=== PATIENT | male | born 1955 | race Caucasian/White ===

== ENCOUNTER 2018-01-09 03:42 | Emergency (ER) | payer OTHER ==
[2018-01-09] MEDS ORDERED: MULTIVITAMINS 10 ML VIAL (INJ) IV ONE (04:14)
[2018-01-09] MEDS ORDERED: NA CHLORIDE 0.9% 1,000 ML ONE (04:14)
[2018-01-09] MEDS ORDERED: THIAMINE 200 MG/2 ML INJ ONE (04:14)
[2018-01-09] MEDS ORDERED: FOLIC ACID 5 MG/ML VIAL ONE (04:15)
[2018-01-09 04:34] LABS: Absolute Lymphocytes (CBC) 3.7 K/uL (0.7-4.9); Absolute Monocytes 0.9 K/uL (0.1-1.3); Absolute Neutrophil 4.4 K/uL (1.8-8.0); Basophils % 0.8 % (0-1.3); Eosinophils % 4.1 % (0-4.4); Hematocrit 44.6 % (39.6-49.0); Lymphocytes % 39.5 % (15.3-44.8); MCH 35.3 pg (27.0-35.0); MCV 101.1 fL (80-100); MPV 7.5 fL (7.6-11.3); Monocytes % 9.3 % (3.3-12.3); Protime INR 0.95; RBC Red Blood Cell Count 4.41 M/uL (4.33-5.43)
[2018-01-09 05:05] LABS: ALT/SGPT 33 U/L (12-78); AST/SGOT 23 U/L (15-37); Albumin 3.9 g/dL (3.4-5.0); Alkaline Phosphatase 69 U/L (45-117); BUN Blood Urea Nitrogen 8 mg/dL (7-18); Bicarbonate 24 mmol/L (21-32); Bilirubin Direct 0.1 mg/dL (0-0.2); Bilirubin Total 0.4 mg/dL (0.2-1.0); Glucose Level 99 mg/dL (74-106); Potassium 3.7 mmol/L (3.5-5.1); Protein, Total 8.2 g/dL (6.4-8.2); Sodium Level 135 mmol/L (136-145)
[2018-01-09 05:29] LABS: Barbiturates NEGATIVE (NEGATIVE); Benzodiazepines NEGATIVE (NEGATIVE); Cocaine NEGATIVE (NEGATIVE); METHAMPHETAM NEGATIVE (NEGATIVE); Methadone NEGATIVE (NEGATIVE); Opiates NEGATIVE (NEGATIVE); Phencyclidine NEGATIVE (NEGATIVE); THC Cannibis NEGATIVE (NEGATIVE)
[2018-01-09 06:07] LABS: Urine Blood NEGATIVE (NEG); Urine Glucose NEGATIVE (NEG); Urine Protein NEGATIVE (NEG); Urine Specific Gravity 1.005 (1.005-1.030); Urine pH 5.5 (5.0-7.0)
--- NOTE | 2018-01-09 07:49 | EKG ---
Test Date: 2018-01-09 Test Time: 03:52:38 [employer] Developer: DOROTEO MEASUREMENT RESULTS: Intervals: Rate: 77 [place]: 194 QRSD: 78 QT: 370 QTc: 418 [place]: P: -2 [place]: 194 QRS: 6 T: 47 INTERPRETIVE STATEMENTS: Normal sinus rhythm Normal ECG No previous ECG available for comparison Electronically Signed On 01-09-18 07:48:38 CDT by Isaac Reynolds
--- NOTE | 2018-01-09 13:33 | ER ---
Nurse's Notes [facility] Name: Cleveland Isaacs Age: 62 yrs Sex: Male : 1955 Arrival Date: 01/09/2018 Time: 03:43 Bed 7 Private MD: Diagnosis: Alcohol abuse with intoxication Presentation: 01/09 03:52 Presenting complaint: [place] police records clerk states they were notified by the [facility] hotline that the pt had called them and reported he wanted to get his gun out of his gun safe and blow his brains out so they went to check on the pt and he was intoxicated reporting that he had drunk 8 16 oz cans of beer and wanted to kill himself. Transition of care: patient was not received from another setting of care. Onset of symptoms was January 09, 2018. Risk Assessment: Do you want to hurt yourself or someone else? Patient reports no desire to harm self or others. Initial Sepsis Screen: Does the patient meet any 2 criteria? No. Patient's initial sepsis screen is negative. Does the patient have a suspected source of infection? No. Patient's initial sepsis screen is negative. Care prior to arrival: None. 03:52 Method Of Arrival: Law Enforcement: [place] GÓMEZ 03:52 Acuity: GEMA 2 bb Historical: - Allergies: 03:57 Codeine; bb - Home Meds: 03:57 Unable to obtain [Active]; bb - PMHx: 03:57 PTSD; bb - PSHx: 03:57 R knee replacement; bb - Immunization history:: Adult Immunizations unknown. - Social history:: Smoking status: Patient uses tobacco products, smokes 1.5 packs per day, Patient uses alcohol, patient/guardian reports recent binge of alcohol consumption. Patient/guardian denies using street drugs. - Ebola Screening: : No symptoms or risks identified at this time. Screenin:08 Abuse screen: Denies threats or abuse. Nutritional screening: No deficits noted. jd3 Tuberculosis screening: No symptoms or risk factors identified. Fall Risk IV access (20 points). Ambulatory Aid- None/Bed Rest/Nurse Assist (0 pts). Gait- Normal/Bed Rest/Wheelchair (0 pts) Mental Status- Oriented to own ability (0 pts). Total Oakley Fall Scale indicates No Risk (0-24 pts). Assessment: 04:02 General: Appears in no apparent distress. uncomfortable, Behavior is cooperative, jd3 appropriate for age, anxious, Smells of alcohol. Pain: Denies pain. Neuro: Level of Consciousness is awake, alert, obeys commands, Oriented to person, place, time, situation. Cardiovascular: Denies chest pain, Capillary refill < 3 seconds Patient's skin is warm and dry. Respiratory: Airway is patent Respiratory effort is even, unlabored, Respiratory pattern is regular, symmetrical, Denies cough, shortness of breath. GI: No signs and/or symptoms were reported involving the gastrointestinal system. : No signs and/or symptoms were reported regarding the genitourinary system. EENT: No signs and/or symptoms were reported regarding the EENT system. Derm: No signs and/or symptoms reported regarding the dermatologic system. Musculoskeletal: Circulation, motion, and sensation intact. Range of motion: intact in all extremities. 05:00 Reassessment: Patient appears in no apparent distress at this time. Patient and/or jd3 family updated on plan of care and expected duration. Pain level reassessed. Patient is alert, oriented x 3, equal unlabored respirations, skin warm/dry/pink. Patient denies pain at this time. 06:00 Reassessment: Patient appears in no apparent distress at this time. Patient and/or jd3 family updated on plan of care and expected duration. Pain level reassessed. Patient is alert, oriented x 3, equal unlabored respirations, skin warm/dry/pink. Patient denies pain at this time. 07:00 Reassessment: Patient appears in no apparent distress at this time. Patient and/or ph family updated on plan of care and expected duration. Pain level reassessed. Patient is alert, oriented x 3, equal unlabored respirations, skin warm/dry/pink. Pt denies SI at this time, states, " I just had a little too much to drink and have had a lot going on, I don't want to kill myself." Awaiting repeat ETOH before pt can be assessed by [facility]. 08:00 Reassessment: Patient appears in no apparent distress at this time. Patient and/or ph family updated on plan of care and expected duration. Pain level reassessed. Pt asleep w/ equal unlabored respirations, awaiting evaluation by [facility]. 08:30 Reassessment: Patient appears in no apparent distress at this time. Patient is alert, ph oriented x 3, equal unlabored respirations, skin warm/dry/pink. Pt awake and requesting to use urinal, states, " When am I getting out of here? This is getting ridiculous." It was explained to pt that his ETOH needs to be below 100 before [facility] can come to evaluate him. Repeat ETOH level drawn and sent to lab, awaiting results. 09:30 Reassessment: Patient appears in no apparent distress at this time. Patient and/or ph family updated on plan of care and expected duration. Pain level reassessed. Pt asleep w/ even and equal repsirations. 10:30 Reassessment: Patient appears in no apparent distress at this time. No changes from ph previously documented assessment. Patient and/or family updated on plan of care and expected duration. Pain level reassessed. 11:30 Reassessment: Patient appears in no apparent distress at this time. No changes from ph previously documented assessment. Patient and/or family updated on plan of care and expected duration. Pain level reassessed. 13:00 Reassessment: Patient appears in no apparent distress at this time. Patient and/or ph family updated on plan of care and expected duration. Pain level reassessed. Patient is alert, oriented x 3, equal unlabored respirations, skin warm/dry/pink. [facility] client representative at bedside to speak w/ pt. Psych: 04:02 Subjective: Patient's mood is irritable, Having thoughts of suicide. Plan for suicide bb is "blowing my brains out" with his gun. Objective: Patient is irritable, Speech is loud. Interventions:. Suicide Risk Assessment: Sad Person Scale: Sex of patient: Male: Score 1 point. Age of patient: Score 0 point if patient falls outside of specified age parameters. Depression: Score 1 point if signs of depression are present. Substance Abuse: Score 1 point if patient abuses alcohol or drugs. Organized Plan: Score 1 point if patient had a plan in place. Chronic Sickness: Score 1 point if patient has illness, chronic, debilitating, or severe. TOTAL POINTS: If total points are 5-6, proposed clinical action is to strongly consider hospitalization, depending upon confidence in the follow-up arrangement. Implement suicide precautions. Patient uses 8 16 oz beers. 04:03 Subjective: Patient's mood is sad, Delusions are denied, Hallucinations are denied jd3 Having thoughts of suicide. Objective: Patient is cooperative, irritable, Speech is normal, Affect is appropriate. Interventions: Removed personal items and placed in bag. Patient placed in hospital gown. Searched person for dangerous items. Belonging list filled out. Suicide Risk Assessment: Sad Person Scale: Sex of patient: Male: Score 1 point. Age of patient: Score 0 point if patient falls outside of specified age parameters. Depression: Score 1 point if signs of depression are present. Previous Attempt: Score 0 point if patient has not previously attempted suicide. Substance Abuse: Score 1 point if patient abuses alcohol or drugs. Rational Thinking: Score 0 point if patient has rational thinking. Social Support: Score 0 if social support is present/available. Organized Plan: Score 1 point if patient had a plan in place. Relationship: Score 0 point if patient has a spouse or domestic partner. Chronic Sickness: Score 0 point if patient does not have a chronic illness, debilitating, or severe disorder. TOTAL POINTS: If total points are 3-4, proposed clinical action is close follow-up/consider hospitalization. Safety Checks: Personal items have been removed. Door is open. No visitors are present at this time. Patient uses. Vital Signs: 03:57 BP 159 / 84; Pulse 76; Resp 18 S; Temp 98(O); Pulse Ox 95% on R/A; Weight 107.95 kg bb (R); Height 6 ft. 0 in. (182.88 cm) (R); Pain 0/10; 07:32 BP 144 / 80; Pulse 70; Resp 16; Pulse Ox 96% on R/A; Pain 0/10; em1 12:05 BP 137 / 62; Pulse 70; Resp 18; Temp 99.2; Pulse Ox 94% ; ag2 03:57 Body Mass Index 32.28 (107.95 kg, 182.88 cm) bb ED Course: 03:43 Patient arrived in ED. ds1 03:56 Triage completed. bb 03:57 Kd Ohara MD is Attending Physician. pkl 04:02 Guanako Ochoa RN is Primary Nurse. jd3 04:08 Patient has correct armband on for positive identification. Bed in low position. Call jd3 light in reach. Side rails up X 1. 04:15 Safety Checks: Personal items have been removed. The door is open or patient has been jd3 placed in a hallway bed/chair. There are no family/friend visitors at this time Sitter present at this time. 04:19 Note: Pt refused portable 1 view Chest Xray.. sw 04:30 Safety Checks: Personal items have been removed. The door is open or patient has been jd3 placed in a hallway bed/chair. There are no family/friend visitors at this time Sitter present at this time. 04:40 Acetaminophen Sent. ds4 04:40 Basic Metabolic Panel Sent. ds4 04:40 CBC with Diff Sent. ds4 04:41 Hepatic Function Sent. ds4 04:42 PT-INR Sent. ds4 04:45 Safety Checks: Personal items have been removed. The door is open or patient has been jd3 placed in a hallway bed/chair. There are no family/friend visitors at this time Sitter present at this time. 04:45 Safety checks: Items removed: yes. Door open/sign placed on door: yes. Family/friend ds4 present: no. Sitter present: Yes. 04:45 Ptt, Activated Sent. ds4 04:45 Salicylate Sent. ds4 05:00 Safety checks: Items removed: yes. Door open/sign placed on door: yes. Family/friend ds4 present: no. Sitter present: Yes. 05:01 Urine Drug Screen Sent. ds4 05:15 Safety checks: Items removed: yes. Door open/sign placed on door: yes. Family/friend ds4 present: no. Sitter present: Yes. 05:30 Safety checks: Items removed: yes. Door open/sign placed on door: yes. Family/friend ds4 present: no. Sitter present: Yes. 05:45 Safety checks: Items removed: yes. Door open/sign placed on door: yes. Family/friend ds4 present: no. Sitter present: Yes. 06:00 Safety checks: Items removed: yes. Door open/sign placed on door: yes. Family/friend ds4 present: no. Sitter present: Yes. 06:15 Safety checks: Items removed: yes. Door open/sign placed on door: yes. Family/friend ds4 present: no. Sitter present: Yes. 06:30 Safety checks: Items removed: yes. Door open/sign placed on door: yes. Family/friend ds4 present: no. Sitter present: Yes. 06:45 Safety checks: Items removed: yes. Door open/sign placed on door: yes. Family/friend ds4 present: no. Sitter present: Yes. 07:00 Safety checks: Items removed: yes. Door open/sign placed on door: yes. Family/friend ds4 present: no. Sitter present: Yes. 07:11 Attending Physician role handed off by Kd Ohara MD rn 07:11 Jerzy Oneill MD is Attending Physician. rn 07:13 Safety checks: Items removed: yes. Door open/sign placed on door: yes. Family/friend em1 present: no. Sitter present: Yes. 07:30 Safety checks: Items removed: yes. Door open/sign placed on door: yes. Family/friend em1 present: no. Sitter present: Yes. 07:45 Safety checks: Items removed: yes. Door open/sign placed on door: yes. Family/friend em1 present: no. Sitter present: Yes. 08:00 Safety checks: Items removed: yes. Door open/sign placed on door: yes. Family/friend em1 present: no. Sitter present: Yes. 08:00 Arm band placed on. ph 08:17 Safety checks: Items removed: yes. Door open/sign placed on door: yes. Family/friend em1 present: no. Sitter present: Yes. 08:30 Safety checks: Items removed: yes. Door open/sign placed on door: yes. Family/friend eb present: no. Sitter present: Yes. 08:45 Safety checks: Items removed: yes. Door open/sign placed on door: yes. Family/friend eb present: no. Sitter present: Yes. 09:00 Safety checks: Items removed: yes. Door open/sign placed on door: yes. Family/friend em1 present: no. Sitter present: Yes. 09:15 Safety checks: Items removed: yes. Door open/sign placed on door: yes. Family/friend em1 present: no. Sitter present: Yes. 09:26 called the [facility] at [phone] spoke with Marshall to please page a eb screener to come evaluate the patient. 09:49 Safety checks: Items removed: Door open/sign placed on door: yes. Family/friend em1 present: yes. Sitter present: Yes. 10:13 No apparent distress. Appears to be sleeping. Safety Checks: Personal items have been ag2 removed. The door is open or patient has been placed in a hallway bed/chair. There are no family/friend visitors at this time Sitter present at this time. 10:23 No apparent distress. pt sitting up at side of bed eating breakfast. Safety Checks: ag2 Personal items have been removed. The door is open or patient has been placed in a hallway bed/chair. There are no family/friend visitors at this time Sitter present at this time. 10:27 Anitha from the [facility] called said she received the consult and would be eb here around 1230. 10:56 No apparent distress. Appears to be sleeping. Safety Checks: Personal items have been ag2 removed. The door is open or patient has been placed in a hallway bed/chair. There are no family/friend visitors at this time Sitter present at this time. 11:06 No apparent distress. Appears to be sleeping. Safety Checks: Personal items have been ag2 removed. The door is open or patient has been placed in a hallway bed/chair. There are no family/friend visitors at this time Sitter present at this time. 11:23 No apparent distress. Appears to be sleeping. Safety Checks: Personal items have been ag2 removed. The door is open or patient has been placed in a hallway bed/chair. There are no family/friend visitors at this time Sitter present at this time. 11:44 No apparent distress. Appears to be sleeping. Safety Checks: Personal items have been ag2 removed. The door is open or patient has been placed in a hallway bed/chair. There are no family/friend visitors at this time. 12:04 No apparent distress. Appears to be sleeping. Safety Checks: Personal items have been ag2 removed. The door is open or patient has been placed in a hallway bed/chair. There are no family/friend visitors at this time Sitter present at this time. 12:23 No apparent distress. Appears to be sleeping. Safety Checks: Personal items have been ag2 removed. The door is open or patient has been placed in a hallway bed/chair. There are no family/friend visitors at this time Sitter present at this time. 12:35 No apparent distress. Appears to be sleeping. Safety Checks: Personal items have been ag2 removed. The door is open or patient has been placed in a hallway bed/chair. There are no family/friend visitors at this time Sitter present at this time. 12:43 Appears agitated. Pt sitting up in bed eating lunch. pt stated " I cannot stand this ag2 much longer, when are they coming, i want to go home". Safety Checks: Personal items have been removed. The door is open or patient has been placed in a hallway bed/chair. There are no family/friend visitors at this time Sitter present at this time. 12:58 Anitha from the [facility] here to screen the patient. 12:59 No apparent distress. [facility] client representative visiting with pt at this time. Safety ag2 Checks: Personal items have been removed. The door is open or patient has been placed in a hallway bed/chair. There are no family/friend visitors at this time Sitter present at this time. 13:16 No apparent distress. Resting quietly. Safety Checks: Personal items have been removed. ag2 The door is open or patient has been placed in a hallway bed/chair. There are no family/friend visitors at this time Sitter present at this time. 13:26 No apparent distress. Resting quietly. Safety Checks: Personal items have been removed. ag2 The door is open or patient has been placed in a hallway bed/chair. There are no family/friend visitors at this time Sitter present at this time. 13:35 No apparent distress. Resting quietly. Safety Checks: Personal items have been removed. ag2 The door is open or patient has been placed in a hallway bed/chair. There are no family/friend visitors at this time Sitter present at this time. 13:53 No apparent distress. Resting quietly. Safety Checks: Personal items have been removed. ag2 The door is open or patient has been placed in a hallway bed/chair. There are no family/friend visitors at this time Sitter present at this time. 13:56 No apparent distress. pt discharged. ag2 14:00 No provider procedures requiring assistance completed. IV discontinued, intact, ph bleeding controlled, No redness/swelling at site. Pressure dressing applied. Administered Medications: 04:34 Not Given (Patient Refused): Banana Bag - (NS 0.9% 1000 ml, foLIC Acid 1 mg, Thiamine jd3 100 mg, Multivitamin 1 amp) IV at calculated rate once Outcome: 13:32 Discharge ordered by . rn 14:00 Discharged to home ambulatory. ph 14:00 Condition: improved 14:00 Discharge instructions given to patient, Instructed on discharge instructions, follow up and referral plans. Demonstrated understanding of instructions, follow-up care. 14:01 Patient left the ED. ph Signatures: Kd Ohara MD MD pkl Sanford, Demi ds1 Ana Rosa Looney RN RN bb Jerzy Oneill MD MD rn Martinez, Eric em1 Herman Ghosh ds4 Margo Huang RN RN Bossman, Guanako Platt RN RN Anita Marquez ag2 Gilda Nicole Corrections: (The following items were deleted from the chart) 04:09 03:52 Risk Assessment: Do you want to hurt yourself or someone else? Patient reports no jd3 desire to harm self or others. bb 04:32 04:03 Safety Checks: pt refused to relinquish personal items, awaiting mental health jd3 deputy for JOSE. doctor and charge nurse notified. Door is open. No visitors are present at this time. jd3 04:32 04:03 Interventions: pt refused to relinquish personal items, awaiting mental health jd3 deputy for JOSE. doctor and charge nurse notified. jd3 07:01 06:56 Safety checks: Items removed: yes. Door open/sign placed on door: yes. ds4 Family/friend present: no. Sitter present: Yes. ds4 10:10 04:00 Arm band placed on Patient placed in an exam room, on a stretcher, on pulse ag2 oximetry, bb 14:58 07:00 Reassessment: Patient appears in no apparent distress at this time. Patient ph and/or family updated on plan of care and expected duration. Pain level reassessed. Patient is alert, oriented x 3, equal unlabored respirations, skin warm/dry/pink. ph 14:58 08:30 Reassessment: Patient appears in no apparent distress at this time. Patient is ph alert, oriented x 3, equal unlabored respirations, skin warm/dry/pink. Pt awake and requesting to use urinal, states, " When am I getting out of here? This is getting ridiculous." It was explained to pt that his ETOH needs to be below 100 before [facility] can come to evaluate him. Repeat ETOH level drawn and sent to lab, awaiting results ph
--- NOTE | 2018-01-09 13:33 | EDPHYS ---
Physician Documentation [facility] Name: Cleveland Isaacs Age: 62 yrs Sex: Male : 1955 Arrival Date: 01/09/2018 Time: 03:43 Bed 7 Private MD: ED Physician Jerzy Oneill HPI: 01/09 04:05 This 62 yrs old Male presents to ER via [employer] with complaints of Suicidal pkl Ideation. 04:05 The patient presents to the emergency department with depression. Onset: The pkl symptoms/episode began/occurred today. Patient said he was upset because his is in the hospital and he was having problems with the insurance. He started drinking a lot and became intoxicated and called [place] hot line an reported he wanted to get his gun and blow his brains.. Historical: - Allergies: 03:57 Codeine; bb - Home Meds: 03:57 Unable to obtain [Active]; bb - PMHx: 03:57 PTSD; bb - PSHx: 03:57 R knee replacement; bb - Immunization history:: Adult Immunizations unknown. - Social history:: Smoking status: Patient uses tobacco products, smokes 1.5 packs per day, Patient uses alcohol, patient/guardian reports recent binge of alcohol consumption. Patient/guardian denies using street drugs. - Ebola Screening: : No symptoms or risks identified at this time. ROS: 04:05 Eyes: Negative for injury, pain, redness, and discharge, ENT: Negative for injury, pkl pain, and discharge, Neck: Negative for injury, pain, and swelling, Cardiovascular: Negative for chest pain, palpitations, and edema, Respiratory: Negative for shortness of breath, cough, wheezing, and pleuritic chest pain, Abdomen/GI: Negative for abdominal pain, nausea, vomiting, diarrhea, and constipation, Back: Negative for injury and pain, : Negative for injury, bleeding, discharge, and swelling, MS/Extremity: Negative for injury and deformity, Skin: Negative for injury, rash, and discoloration, Neuro: Negative for headache, weakness, numbness, tingling, and seizure. 04:05 Psych: Positive for depression, suicidal ideation. Exam: 04:05 Head/Face: Normocephalic, atraumatic. Eyes: Pupils equal round and reactive to light, pkl extra-ocular motions intact. Lids and lashes normal. Conjunctiva and sclera are non-icteric and not injected. Cornea within normal limits. Periorbital areas with no swelling, redness, or edema. ENT: Nares patent. No nasal discharge, no septal abnormalities noted. Tympanic membranes are normal and external auditory canals are clear. Oropharynx with no redness, swelling, or masses, exudates, or evidence of obstruction, uvula midline. Mucous membranes moist. Neck: Trachea midline, no thyromegaly or masses palpated, and no cervical lymphadenopathy. Supple, full range of motion without nuchal rigidity, or vertebral point tenderness. No Meningismus. Chest/axilla: Normal chest wall appearance and motion. Nontender with no deformity. No lesions are appreciated. Cardiovascular: Regular rate and rhythm with a normal S1 and S2. No gallops, murmurs, or rubs. Normal PMI, no JVD. No pulse deficits. Respiratory: Lungs have equal breath sounds bilaterally, clear to auscultation and percussion. No rales, rhonchi or wheezes noted. No increased work of breathing, no retractions or nasal flaring. Abdomen/GI: Soft, non-tender, with normal bowel sounds. No distension or tympany. No guarding or rebound. No evidence of tenderness throughout. Back: No spinal tenderness. No costovertebral tenderness. Full range of motion. Skin: Warm, dry with normal turgor. Normal color with no rashes, no lesions, and no evidence of cellulitis. MS/ Extremity: Pulses equal, no cyanosis. Neurovascular intact. Full, normal range of motion. Neuro: Awake and alert, GCS 15, oriented to person, place, time, and situation. Cranial nerves II-XII grossly intact. Motor strength 5/5 in all extremities. Sensory grossly intact. Cerebellar exam normal. Normal gait. 04:05 Psych: Behavior/mood is cooperative, Affect is calm, Patient having thoughts of suicide. Plan for suicide is get his gun and blow his brains Judgement / Insight is impaired. Vital Signs: 03:57 BP 159 / 84; Pulse 76; Resp 18 S; Temp 98(O); Pulse Ox 95% on R/A; Weight 107.95 kg bb (R); Height 6 ft. 0 in. (182.88 cm) (R); Pain 0/10; 07:32 BP 144 / 80; Pulse 70; Resp 16; Pulse Ox 96% on R/A; Pain 0/10; em1 12:05 BP 137 / 62; Pulse 70; Resp 18; Temp 99.2; Pulse Ox 94% ; ag2 03:57 Body Mass Index 32.28 (107.95 kg, 182.88 cm) bb MDM: 03:57 Patient medically screened. pkl 13:29 Differential diagnosis: alcohol intoxication. Data reviewed: vital signs, nurses notes, groover and turner test result(s), EKG. Counseling: I had a detailed discussion with the patient and/or guardian regarding: the historical points, exam findings, and any diagnostic results supporting the discharge/admit diagnosis, lab results, the need for outpatient follow up, to return to the emergency department if symptoms worsen or persist or if there are any questions or concerns that arise at home. Response to treatment: the patient's symptoms have markedly improved after treatment. Special discussion: I discussed with the patient/guardian in detail that at this point there is no indication for admission to the hospital. It is understood, however, that if the symptoms persist or worsen the patient needs to return immediately for re-evaluation. ED course: Pt spoke with Dr campos this morning, denied suicidal ideation to him, plan was to watch him, let him sober, and reeval. Denied suicidal ideations entire time he has been here, called out [facility] for evaluation, they state he denies suicidal ideation or plan to them, no previous attempt or history, under stress, they decided he can safely go home, has a safety plan. . 01/09 03:59 Order name: Acetaminophen; Complete Time: :01/09 03:59 Order name: Basic Metabolic Panel; Complete Time: :01/09 03:59 Order name: CBC with Diff; Complete Time: 04:59 01/09 03:59 Order name: ETOH Level; Complete Time: 04:01/09 03:59 Order name: Hepatic Function; Complete Time: :01/09 03:59 Order name: PT-INR; Complete Time: 01/09 03:59 Order name: Ptt, Activated; Complete Time: 04:01/09 03:59 Order name: Salicylate; Complete Time: 0401/09 03:59 Order name: Urine Drug Screen; Complete Time: :11 bb 01/09 05:01 Order name: Urine Dipstick--Ancillary (enter results); Complete Time: 07:11 ds4 01/09 08:33 Order name: ETOH Level; Complete Time: 12:01 la1 01/09 10:59 Order name: ETOH Level; Complete Time: 12:01 la1 01/09 03:59 Order name: EKG; Complete Time: 04:00 bb 01/09 03:59 Order name: EKG - Nurse/Tech; Complete Time: 03:59 bb 01/09 03:59 Order name: IV Saline Lock; Complete Time: 03:59 bb 01/09 03:59 Order name: Labs collected and sent; Complete Time: 03:59 bb 01/09 03:59 Order name: Urine Dipstick-Ancillary (obtain specimen); Complete Time: 05:01 bb 01/09 09:32 Order name: Diet Finger Food; Complete Time: 09:32 eb 01/09 10:19 Order name: Diet Regular; Complete Time: 10:19 la1 Administered Medications: 04:34 Not Given (Patient Refused): Banana Bag - (NS 0.9% 1000 ml, foLIC Acid 1 mg, Thiamine jd3 100 mg, Multivitamin 1 amp) IV at calculated rate once Disposition: 01/09/18 13:32 Discharged to Home. Impression: Alcohol abuse with intoxication. - Condition is Stable. - Discharge Instructions: Alcohol Intoxication. - Medication Reconciliation Form, Thank You Letter, Antibiotic Education, Prescription Opioid Use form. - Follow up: Private Physician; When: As needed; Reason: Recheck today's complaints, Re-evaluation by your physician. - Problem is new. - Symptoms have improved. Signatures: Dispatcher [employer] EDAK Kd Campos MD MD pkl Ballard, Brenda RN RN Jerzy Coleman ph D, MD MD rn Hall, Patricia, RN RNavies, Jonathon RN jd3 Corrections: (The following items were deleted from the chart) 06:36 04:04 Chest Single View+RAD.RAD.BRZ ordered. EDAK EDMS 14:01 13:32 01/09/2018 13:32 Discharged to Home. Impression: Alcohol abuse with intoxication. ph Condition is Stable. Forms are Medication Reconciliation Form, Thank You Letter, Antibiotic Education, Prescription Opioid Use. Follow up: Private Physician; When: As needed; Reason: Recheck today's complaints, Re-evaluation by your physician. Problem is new. Symptoms have improved. rn
== END 2018-01-09 14:01 | disposition home or self-care (01) ==
LOC: ER 03:42
DX: F10.129 Alcohol abuse with intoxication, unspecified (principal); Z88.6 Allergy status to analgesic agent
CPT/HCPCS: 36415; 80048; 80076; 80307; 80320; 80329; 81003; 85025; 85610; 85730; 93005; 99284; J3411; J7030

== ENCOUNTER 2018-05-13 10:59 | Observation (INO) | payer OTHER ==
--- NOTE | 2018-05-13 11:43 | RAD REPORT ---
EXAM DESCRIPTION: CT - Head Brain Wo Cont - 05/13/2018 11:37 am CLINICAL HISTORY: DIZZINESS Headache, dizziness, drowsiness. COMPARISON: No comparisons TECHNIQUE: All CT scans are performed using dose optimization technique as appropriate and may inclu de automated exposure control or mA/KV adjustment according to patient size. FINDINGS: No intracranial hemorrhage, hydrocephalus or extra-axial fluid collection.No areas of brai n edema or evidence of midline shift. Mild fluid is seen in the ethmoid air cells and both maxillary antra. The calvarium is intact. IMPRESSION: No acute intracranial abnormality. Mild paranasal sinus fluid.
--- NOTE | 2018-05-13 12:00 | RAD REPORT ---
EXAM DESCRIPTION: RAD - Chest Single View - 05/13/2018 11:55 am CLINICAL HISTORY: dizziness Chest pain. COMPARISON: No comparisons FINDINGS: Portable technique limits examination quality. Interstitial lung markings are mildly prominent. No focal infiltrate is seen. The heart is normal in size. No displaced fractures.
[2018-05-13 12:20] LABS: Absolute Lymphocytes (CBC) 2.3 K/uL (0.7-4.9); Absolute Monocytes 0.5 K/uL (0.1-1.3); Absolute Neutrophil 5.8 K/uL (1.8-8.0); Basophils % 1.1 % (0-1.3); Eosinophils % 3.1 % (0-4.4); Hematocrit 41.3 % (39.6-49.0); Lymphocytes % 25.6 % (15.3-44.8); MPV 7.7 fL (7.6-11.3); Monocytes % 5.8 % (3.3-12.3); RBC Red Blood Cell Count 4.25 M/uL (4.33-5.43)
[2018-05-13 12:21] LABS: Protime INR 1.12
[2018-05-13 12:39] LABS: ALT/SGPT 19 U/L (12-78); AST/SGOT 14 U/L (15-37); Albumin 3.4 g/dL (3.4-5.0); Alkaline Phosphatase 57 U/L (45-117); BUN Blood Urea Nitrogen 12 mg/dL (7-18); Bicarbonate 27 mmol/L (21-32); Bilirubin Direct 0.1 mg/dL (0-0.2); Bilirubin Total 0.5 mg/dL (0.2-1.0); Glucose Level 88 mg/dL (74-106); Magnesium 2.3 mg/dL (1.8-2.4); NT PRO-BNP 246 pg/mL (<125); Protein, Total 7.1 g/dL (6.4-8.2); Sodium Level 141 mmol/L (136-145); Troponin (Emerg Dept Use Only) < 0.02 ng/mL (0.0-0.045)
--- NOTE | 2018-05-13 13:33 | ER ---
Nurse's Notes [facility] Name: Cleveland Isaacs Age: 62 yrs Sex: Male : 1955 Arrival Date: 05/13/2018 Time: 11:05 Bed 6 Private MD: Diagnosis: Dizziness;Bradycardia, unspecified Presentation: 05/13 11:05 Presenting complaint: Patient states: When he was driving to work this morning he aj1 started to feel dizzy and like his vision was foggy, when he got to work he sat in the parking lot for a minute and ended up falling asleep, which is unusual for him. He told his boss so they sent him home [facility], when he was at the clinic they did orthostatic vital signs and his blood pressure dropped when he was standing. Patient states that he was also recently started on Losartan 50 mg PO. Transition of care: patient was not received from another setting of care. Onset of symptoms was May 13, 2018. Risk Assessment: Do you want to hurt yourself or someone else? Patient reports no desire to harm self or others. Initial Sepsis Screen: Does the patient meet any 2 criteria? No. Patient's initial sepsis screen is negative. Does the patient have a suspected source of infection? No. Patient's initial sepsis screen is negative. Care prior to arrival: None. 11:05 Method Of Arrival: EMS: [facility] aj1 11:05 Acuity: GEMA 3 aj1 Triage Assessment: 11:13 General: Appears in no apparent distress. comfortable, Behavior is calm, cooperative, aj1 appropriate for age. Pain: Denies pain. Historical: - Allergies: 11:13 Codeine; aj1 - Home Meds: 11:13 bupropion HCl 150 mg Oral TbER 1 tab once daily [Active]; cyanocobalamin (vitamin B-12) aj1 1,000 mcg oral tab daily [Active]; gabapentin 100 mg oral cap 2 caps 3 times per day [Active]; losartan 50 mg oral tab 1 tab once daily [Active]; prazosin 1 mg Oral cap 1 cap at bedtime [Active]; sertraline 100 mg oral tab 1 tab once daily [Active]; trazodone 100 mg Oral tab 1 tab as needed at bedtime [Active]; aspirin 81 mg Oral chew 1 tab once daily [Active]; - PMHx: 11:13 PTSD; Hypertension; DJD; Hyperlipidemia; aj1 - PSHx: 11:13 Knee surgery; Hernia repair; hand surgery; aj1 - Immunization history:: Flu vaccine is up to date. - Social history:: Smoking status: Patient uses tobacco products, smokes 1.5 packs per day. - Ebola Screening: : Patient denies travel to an Ebola-affected area in the 21 days before illness onset. Screenin:10 Abuse screen: Denies threats or abuse. Denies injuries from another. Nutritional aj1 screening: No deficits noted. Tuberculosis screening: No symptoms or risk factors identified. 16:33 Fall Risk No fall in past 12 months (0 pts). Secondary diagnosis (15 points) dizziness. aj1 IV access (20 points). Ambulatory Aid- None/Bed Rest/Nurse Assist (0 pts). Gait- Normal/Bed Rest/Wheelchair (0 pts) Mental Status- Oriented to own ability (0 pts). Total Oakley Fall Scale indicates Low Risk Score (25-44 pts). As available Patient and Family Educated on Fall Prevention Program and strategies. Assessment: 11:10 General: Appears in no apparent distress. comfortable, Behavior is calm, cooperative, aj1 appropriate for age. Pain: Denies pain. Neuro: Level of Consciousness is awake, alert, obeys commands, Oriented to person, place, time, situation, Moves all extremities. Full function Gait is steady, Speech is normal, Facial symmetry appears normal, Reports dizziness. Cardiovascular: Denies chest pain, Heart tones S1 S2 present Patient's skin is warm and dry. Rhythm is sinus rhythm. Respiratory: Airway is patent Respiratory effort is even, unlabored, Respiratory pattern is regular, symmetrical, Breath sounds are clear bilaterally. GI: No signs and/or symptoms were reported involving the gastrointestinal system. : No signs and/or symptoms were reported regarding the genitourinary system. EENT: No signs and/or symptoms were reported regarding the EENT system. Derm: No signs and/or symptoms reported regarding the dermatologic system. Skin is pink, warm \T\ dry. normal. Musculoskeletal: No signs and/or symptoms reported regarding the musculoskeletal system. Circulation, motion, and sensation intact. 12:10 Reassessment: Patient appears in no apparent distress at this time. No changes from aj1 previously documented assessment. Patient and/or family updated on plan of care and expected duration. Pain level reassessed. Patient is alert, oriented x 3, equal unlabored respirations, skin warm/dry/pink. 13:15 Reassessment: Patient and/or family updated on plan of care and expected duration. Pain aj1 level reassessed. General: Appears in no apparent distress. comfortable, Behavior is calm, cooperative, appropriate for age. Pain: Denies pain. Neuro: Level of Consciousness is awake, alert, obeys commands, Oriented to person, place, time, situation, Speech is normal, Facial symmetry appears normal. Cardiovascular: Patient's skin is warm and dry. Rhythm is sinus rhythm. Respiratory: Airway is patent Respiratory effort is even, unlabored, Respiratory pattern is regular, symmetrical. GI: No signs and/or symptoms were reported involving the gastrointestinal system. : No signs and/or symptoms were reported regarding the genitourinary system. EENT: No signs and/or symptoms were reported regarding the EENT system. Derm: No signs and/or symptoms reported regarding the dermatologic system. Skin is pink, warm \T\ dry. normal. Musculoskeletal: Circulation, motion, and sensation intact. 14:15 Reassessment: Patient appears in no apparent distress at this time. No changes from aj1 previously documented assessment. Patient and/or family updated on plan of care and expected duration. Pain level reassessed. Patient is alert, oriented x 3, equal unlabored respirations, skin warm/dry/pink. 15:15 Reassessment: Patient appears in no apparent distress at this time. No changes from aj1 previously documented assessment. Patient and/or family updated on plan of care and expected duration. Pain level reassessed. Patient is alert, oriented x 3, equal unlabored respirations, skin warm/dry/pink. 16:15 Reassessment: Patient and/or family updated on plan of care and expected duration. Pain aj1 level reassessed. General: Appears in no apparent distress. comfortable, Behavior is calm, cooperative, appropriate for age. Neuro: Level of Consciousness is awake, alert, obeys commands. Cardiovascular: Patient's skin is warm and dry. Rhythm is sinus rhythm. Respiratory: Airway is patent Respiratory effort is even, unlabored, Respiratory pattern is regular, symmetrical. Derm: Skin is pink, warm \T\ dry. normal. Musculoskeletal: Circulation, motion, and sensation intact. 17:15 Reassessment: Patient appears in no apparent distress at this time. No changes from aj1 previously documented assessment. Patient and/or family updated on plan of care and expected duration. Pain level reassessed. Patient is alert, oriented x 3, equal unlabored respirations, skin warm/dry/pink. Vital Signs: 11:13 BP 107 / 66; Pulse 49; Resp 14; Temp 97.8; Pulse Ox 98% on R/A; Weight 107.95 kg (R); aj1 Height 6 ft. 0 in. (182.88 cm) (R); Pain 0/10; 12:00 BP 100 / 59 Supine; Pulse 63; Resp 16; Pulse Ox 97% on R/A; aj1 12:03 BP 117 / 54 Sitting; Pulse 49; aj1 12:06 BP 108 / 50 Standing; Pulse 51; aj1 13:15 BP 112 / 62; Pulse 52; Resp 14; Pulse Ox 100% on R/A; aj1 14:15 BP 123 / 58; Pulse 65; Resp 16; Pulse Ox 100% on R/A; aj1 16:32 BP 143 / 66; Pulse 55; Resp 20; Pulse Ox 97% on R/A; aj1 17:15 BP 135 / 63; Pulse 46; Resp 18; Pulse Ox 97% on R/A; aj1 11:13 Body Mass Index 32.28 (107.95 kg, 182.88 cm) aj1 ED Course: 11:05 Patient arrived in ED. aj1 11:07 Rolo White PA is PHCP. cp 11:07 Salomón Schaeffer MD is Attending Physician. cp 11:08 Triage completed. aj1 11:10 Patient has correct armband on for positive identification. Bed in low position. Call aj1 light in reach. Side rails up X 1. primary care provider on. Pulse ox on. NIBP on. 11:10 No provider procedures requiring assistance completed. aj1 11:13 Arm band placed on Patient placed in an exam room. aj1 11:37 CT Head Brain wo Cont In Process Unspecified. EDMS 11:56 XRAY Chest (1 view) In Process Unspecified. EDMS 11:57 Stefani Lanier, ALEXANDRA is Primary Nurse. aj1 12:50 EKG done, by fiber technician. reviewed by Rolo COLLINS. at1 13:11 attempted to initiate a transfer with Margot from the [facility] transfer [facility]/ per Margot kristina eb are at capacity and can't take any admissions currently; that we could try back tomorrow. 13:32 Elder Crowley MD is Hospitalizing Provider. cp 16:32 Patient admitted, IV remains in place. aj1 Administered Medications: No medications were administered Outcome: 13:33 Decision to Hospitalize by Provider. cp 17:22 Admitted to Med/surg accompanied by tech, via wheelchair, room 408, with chart, Report iw called to ALEXANDRA Quarles 17:22 Condition: good 17:22 Instructed on the need for admit. 17:23 Patient left the ED. iw Signatures: Dispatcher [employer] EDStefani Arevalo RN RN aj1 Belem Black RN RN iw Alisa Melendez, coarse wire drawer EKG Tat1 Rolo White PA PA cp Gilda Nicole
--- NOTE | 2018-05-13 13:34 | EDPHYS ---
Physician Documentation [facility] Name: Cleveland Isaacs Age: 62 yrs Sex: Male : 1955 Arrival Date: 05/13/2018 Time: 11:05 Bed 6 Private MD: ED Physician Salomón Schaeffer HPI: 05/13 11:45 This 62 yrs old Male presents to ER via EMS with complaints of Dizziness. cp 11:45 The patient presents with dizziness, feeling faint. cp 11:45 Onset: The symptoms/episode began/occurred this morning. cp 11:45 Context: occurred at work, while in car. cp 11:45 Patient reports he was recently started on new blood pressure medication, Losartan, and cp took medication this morning prior to driving to work. Patient reports becoming dizzy while driving to work and when he arrived at work, believes he fell asleep while in car. 11:45 Associated signs and symptoms: Pertinent negatives: abdominal pain, chest pain, focal cp weakness, headache, shortness of breath. Patient's baseline: Neuro: alert and fully oriented, Motor: no deficits, Ambulation: walks without assistance, Speech: normal. Historical: - Allergies: 11:13 Codeine; aj1 - Home Meds: 11:13 bupropion HCl 150 mg Oral TbER 1 tab once daily [Active]; cyanocobalamin (vitamin B-12) aj1 1,000 mcg oral tab daily [Active]; gabapentin 100 mg oral cap 2 caps 3 times per day [Active]; losartan 50 mg oral tab 1 tab once daily [Active]; prazosin 1 mg Oral cap 1 cap at bedtime [Active]; sertraline 100 mg oral tab 1 tab once daily [Active]; trazodone 100 mg Oral tab 1 tab as needed at bedtime [Active]; aspirin 81 mg Oral chew 1 tab once daily [Active]; - PMHx: 11:13 PTSD; Hypertension; DJD; Hyperlipidemia; aj1 - PSHx: 11:13 Knee surgery; Hernia repair; hand surgery; aj1 - Immunization history:: Flu vaccine is up to date. - Social history:: Smoking status: Patient uses tobacco products, smokes 1.5 packs per day. - Ebola Screening: : Patient denies travel to an Ebola-affected area in the 21 days before illness onset. ROS: 11:50 Constitutional: Negative for body aches, chills, fever, poor PO intake. cp 11:50 Eyes: Negative for injury, pain, redness, and discharge. cp 11:50 ENT: Negative for drainage from ear(s), ear pain, sore throat, difficulty swallowing, difficulty handling secretions. 11:50 Cardiovascular: Negative for chest pain, edema, palpitations. 11:50 Respiratory: Negative for cough, shortness of breath, wheezing. 11:50 Abdomen/GI: Negative for abdominal pain, nausea, vomiting, and diarrhea, constipation, black/tarry stool, rectal bleeding. 11:50 Back: Negative for pain at rest, pain with movement, radiated pain. 11:50 : Negative for urinary symptoms. 11:50 Skin: Negative for cellulitis, rash. 11:50 Neuro: Positive for dizziness, Negative for altered mental status, headache, seizure activity, weakness. 11:50 All other systems are negative. Exam: 11:50 Head/Face: Normocephalic, atraumatic. Eyes: Pupils equal round and reactive to light, cp extra-ocular motions intact. Lids and lashes normal. Conjunctiva and sclera are non-icteric and not injected. Cornea within normal limits. Periorbital areas with no swelling, redness, or edema. ENT: Nares patent. No nasal discharge, no septal abnormalities noted. Tympanic membranes are normal and external auditory canals are clear. Oropharynx with no redness, swelling, or masses, exudates, or evidence of obstruction, uvula midline. Mucous membranes moist. Neck: Trachea midline, no thyromegaly or masses palpated, and no cervical lymphadenopathy. Supple, full range of motion without nuchal rigidity, or vertebral point tenderness. No Meningismus. Chest/axilla: Normal chest wall appearance and motion. Nontender with no deformity. No lesions are appreciated. 11:50 Constitutional: The patient appears in no acute distress, alert, awake, non-diaphoretic, non-toxic, well developed, well nourished. 11:50 Cardiovascular: Rate: bradycardic, Rhythm: regular, Pulses: Pulses are 2+ in right radial artery and left radial artery. Heart sounds: murmur, systolic, grade 2 over 6, rub, not appreciated, gallop, not appreciated, Edema: is not appreciated, JVD: is not appreciated. 11:50 Respiratory: the patient does not display signs of respiratory distress, Respirations: normal, no use of accessory muscles, no retractions, no splinting, no tachypnea, labored breathing, is not present, Breath sounds: are clear throughout, no decreased breath sounds, no stridor, no wheezing. 11:50 Abdomen/GI: Inspection: abdomen appears normal, Bowel sounds: active, all quadrants, Palpation: abdomen is soft and non-tender, in all quadrants, rebound tenderness, is not appreciated, voluntary guarding, is not appreciated, involuntary guarding, is not appreciated. 11:50 Back: pain, is absent, ROM is normal. 11:50 Skin: cellulitis, is not appreciated, no rash present. 11:50 Neuro: Orientation: to person, place \T\ time. Mentation: is normal, Cerebellar function: is grossly normal, Motor: moves all fours, strength is normal, Sensation: is normal. 12:50 ECG was reviewed by the Attending Physician. cp Vital Signs: 11:13 BP 107 / 66; Pulse 49; Resp 14; Temp 97.8; Pulse Ox 98% on R/A; Weight 107.95 kg (R); aj1 Height 6 ft. 0 in. (182.88 cm) (R); Pain 0/10; 12:00 BP 100 / 59 Supine; Pulse 63; Resp 16; Pulse Ox 97% on R/A; aj1 12:03 BP 117 / 54 Sitting; Pulse 49; aj1 12:06 BP 108 / 50 Standing; Pulse 51; aj1 13:15 BP 112 / 62; Pulse 52; Resp 14; Pulse Ox 100% on R/A; aj1 14:15 BP 123 / 58; Pulse 65; Resp 16; Pulse Ox 100% on R/A; aj1 16:32 BP 143 / 66; Pulse 55; Resp 20; Pulse Ox 97% on R/A; aj1 17:15 BP 135 / 63; Pulse 46; Resp 18; Pulse Ox 97% on R/A; aj1 11:13 Body Mass Index 32.28 (107.95 kg, 182.88 cm) aj1 MDM: 11:07 Patient medically screened. cp 12:00 Differential diagnosis: cardiac arrhythmia, generalized weakness, GI bleed, cp hypovolemia, idiopathic dizziness, syncope, vertigo. 13:28 Physician consultation: Elder Crowley MD was called at 13:30, was contacted at 13:30, cp regarding admission, to the telemetry unit. patient's condition. 13:30 Data reviewed: vital signs, nurses notes, lab test result(s), radiologic studies, CT cp scan, plain films, and as a result, I will admit patient. 13:30 Test interpretation: by ED physician or midlevel provider: ECG. cp 05/13 11:18 Order name: Basic Metabolic Panel; Complete Time: 13:03 cp 05/13 11:18 Order name: CBC with Diff; Complete Time: 12:33 cp 05/13 12:33 Interpretation: Normal except: RBC 4.25; MCV 97.1. cp 05/13 11:18 Order name: LFT's; Complete Time: 13:03 cp 05/13 11:18 Order name: Magnesium; Complete Time: 13:03 cp 05/13 11:18 Order name: NT PRO-BNP; Complete Time: 13:03 cp 05/13 13:03 Interpretation: Abnormal: NT PRO-BNP 246. cp 05/13 11:18 Order name: PT-INR; Complete Time: 12:33 cp 05/13 11:18 Order name: Orthostatics; Complete Time: 12:09 cp 05/13 11:18 Order name: Troponin (emerg Dept Use Only); Complete Time: 13:03 cp 05/13 11:18 Order name: XRAY Chest (1 view); Complete Time: 12:33 cp 05/13 11:18 Order name: EKG; Complete Time: 11:19 cp 05/13 11:18 Order name: Cardiac monitoring; Complete Time: 11:57 cp 05/13 11:18 Order name: IV Saline Lock; Complete Time: 12:09 cp 05/13 11:18 Order name: CT Head Brain wo Cont; Complete Time: 11:52 cp 05/13 12:34 Interpretation: Report reviewed. cp 05/13 11:18 Order name: Labs collected and sent; Complete Time: 12:09 cp 05/13 11:18 Order name: O2 Per Protocol; Complete Time: 11:58 cp 05/13 11:18 Order name: O2 Sat Monitoring; Complete Time: 11:58 cp EC:50 Rate is 45 beats/min. Rhythm is regular. MI interval is prolonged at 206 msec. QRS cp interval is normal. QT interval is normal. T waves are Inverted in lead aVL. Administered Medications: No medications were administered Disposition: 05/14 12:56 Co-signature as Attending Physician, Salomón Schaeffer MD I agree with the assessment and ok plan of care. Disposition: 05/13/18 13:33 Hospitalization ordered by Elder Crowley for Observation. Preliminary diagnosis are Dizziness, Bradycardia, unspecified. - Bed requested for Telemetry/MedSurg (observation). - Status is Observation. iw - Condition is Stable. - Problem is new. - Symptoms have improved. UTI on Admission? No Signatures: Dispatcher [employer] EDMS Stefani Lanier RN RN aj1 Belem Black RN RN iw Rolo White PA PA cp Appiah, William, MD MD wa Botello, Elizabeth eb Corrections: (The following items were deleted from the chart) 05/13 15:03 13:33 Hospitalization Ordered by Elder Crowley MD for Observation. Preliminary diagnosis eb is Dizziness; Bradycardia, unspecified. Bed requested for Telemetry/MedSurg (observation). Status is Observation. Condition is Stable. Problem is new. Symptoms have improved. UTI on Admission? No. cp 17:23 15:03 05/13/2018 13:33 Hospitalization Ordered by Elder Crowley MD for Observation. iw Preliminary diagnosis is Dizziness; Bradycardia, unspecified. Bed requested for Telemetry/MedSurg (observation). Status is Observation. Condition is Stable. Problem is new. Symptoms have improved. UTI on Admission? No. eb
[2018-05-13] MEDS ORDERED: NA CHLORIDE 0.9% 1,000 ML IV ONE (17:00)
--- NOTE | 2018-05-13 17:04 | EKG ---
Test Date: 2018-05-13 Test Time: 12:42:54 [employer] Commanding Officer: RONAN MEASUREMENT RESULTS: Intervals: Rate: 45 GA: 206 QRSD: 62 QT: 460 QTc: 397 Brielle: P: -4 GA: 206 QRS: 40 T: 54 INTERPRETIVE STATEMENTS: Sinus bradycardia Otherwise normal ECG Compared to ECG 01/09/2018 03:52:38 Sinus rhythm no longer present Electronically Signed On 05-13-18 17:03:44 MEDICAL CODING SPECIALIST by Spencer Bejarano
[2018-05-13] MEDS ORDERED: ACETAMINOPHEN 500 MG TAB PO PRN (17:25)
[2018-05-13] MEDS ORDERED: ONDANSETRON 4 MG/2 ML VIAL IV PRN (17:25)
[2018-05-13 17:41] VITALS: BMI 32.5
[2018-05-13] MEDS: ENOXAPARIN 40 MG/0.4 ML SQ SCH (18:18)
[2018-05-13] MEDS ORDERED: TRAZODONE 50 MG TABLET PO PRN (20:29)
[2018-05-13] MEDS: GABAPENTIN 100 MG CAP PO SCH (20:58)
[2018-05-13] MEDS ORDERED: BUPROPION HCL XL 150 MG TAB PO SCH (21:00)
--- NOTE | 2018-05-14 01:56 | HP ---
Date of Admission: 05/13/2018 Chief Complaint: Near syncope, dizziness. History Of Present Illness: The patient is a 62-year-old male with a past medical history of recently diagnosed hypertension on losartan that was started within the past month, PTSD, depression, hyperlipidemia and degenerative disk disease, who was in his usual state of health until day of admission when the patient arrived at work, however, felt dizzy, lightheaded and therefore did not get out of his car in the parking lot, however fell asleep. He subsequently woke up and called his coworkers who came in and evaluated him in the parking lot, and drove him to the ER. The patient denies any syncopal episode. No falls. No head trauma. States that he has been eating and drinking per usual. Denies any fevers, chills, nausea, vomiting, chest pain. The patient's symptoms are constant, moderate and progressively worsening. In the ER, his vital signs showed a blood pressure 100/59, pulse of 49. The patient's orthostatic vital signs were not abnormal. The patient was then referred for admission. When seen in the ER, he was awake, alert, oriented x3, not in any acute distress. Past Medical History: Hypertension, degenerative disk disease, PTSD, depression , hyperlipidemia. Past Surgical History: Right knee surgery, hernia repair umbilical, and right hand surgery. Allergies: TO CODEINE. Medications: List reviewed. Social History: The patient smokes 1.5 packs per day. Has been smoking for over 30 years. Occasional alcohol use. No illicit drug use. The patient is a former personnel, currently working at the plant as helper/driver. Family History: The patient denies any premature coronary artery disease in the family. Review of Systems: An 11-point system reviewed, negative except as per HPI. Physical Examination: Vital Signs: Blood pressure 107/66, pulse 49, respirations 14, temperature 97.8 , O2 of 98% on room air, BMI 32.28. Orthostatic vital signs: Supine blood pressure was 100/59 with a pulse of 63. Sitting blood pressure was 117/54 with a pulse of 49. Standing blood pressure was 108/50 with a pulse of 51. General: Awake, alert and oriented x3, not in any acute distress. Appears older than stated age male. HEENT: Normocephalic, atraumatic. PERRLA. EOMI. Dry mucous membranes. Oropharynx is clear. Conjunctivae are anicteric. Neck: Supple. No JVD. Trachea midline. CV: S1, S2. Sinus bradycardia. A 2/6 systolic murmur present. Peripheral pulses weak bilaterally. Respiratory: Moving air well bilaterally. No wheezing or stridor. Gastrointestinal: Abdomen is soft, nontender, nondistended. Positive bowel sounds. No guarding, no rigidity. Extremities: No clubbing, cyanosis, or edema. No calf tenderness. Neuro: Cranial nerves 2-12 intact grossly. No focal neurological deficit. Speech is normal. Strength is 5/5 bilateral upper and lower extremities. No facial asymmetry. Skin: No rashes. Normal skin turgor. Laboratory Data: Sodium 141, potassium 4, chloride 108, CO2 of 27, BUN 12, creatinine 0.91, glucose 88, calcium 8.3, magnesium 2.3. Troponin less than 0.02. BNP 246. INR 1.12. WBC 9, H and H of 14 and 41.3, platelets 312. Imaging Studies: CT scan of the head shows no acute intracranial abnormality. Mild paranasal sinus fluid. Chest x-ray personally reviewed shows interstitial lung markings are mildly prominent. No focal infiltrate is seen. Heart normal in size. No displaced fractures. EKG: Normal sinus rhythm, rate of 77. No previous EKG for comparison. Assessment: A 62-year-old male with: 1. Generalized weakness. 2. Dizziness. 3. Hypotension. 4. Hyperlipidemia. 5. Degenerative disk disease. 6. Posttraumatic stress disorder. 7. Heart murmur Plan: Admit the patient to [facility] as observation. We will hold the patient's blood pressure medications for now due to hypotension. The patient is also bradycardic. Maybe dizziness may be related to his medication, which was recently started. No signs of infection. Chest x-ray is clear. UA is pending. We will resume home medications as appropriate. We will obtain echocardiogram for murmur. We will start on IV fluids with bolus with normal saline. Likely discharge in a.m. if blood pressure improves and echo is normal. COLLETTE Voice ID: [id number] [email or web address]
[2018-05-14 06:25] LABS: Absolute Lymphocytes (CBC) 2.5 K/uL (0.7-4.9); Absolute Monocytes 0.7 K/uL (0.1-1.3); Absolute Neutrophil 6.4 K/uL (1.8-8.0); Basophils % 0.8 % (0-1.3); Eosinophils % 2.9 % (0-4.4); Hematocrit 41.4 % (39.6-49.0); Lymphocytes % 24.8 % (15.3-44.8); MPV 7.9 fL (7.6-11.3); Monocytes % 6.7 % (3.3-12.3); RBC Red Blood Cell Count 4.25 M/uL (4.33-5.43)
[2018-05-14 06:29] LABS: Albumin 3.3 g/dL (3.4-5.0); Bilirubin Total 0.5 mg/dL (0.2-1.0); Potassium 4.3 mmol/L (3.5-5.1); Protein, Total 6.9 g/dL (6.4-8.2)
[2018-05-14] MEDS: ENOXAPARIN 40 MG/0.4 ML SQ SCH (08:08)
[2018-05-14] MEDS: GABAPENTIN 100 MG CAP PO SCH ×2 (08:08→13:01)
[2018-05-14 08:25] LABS: Urine Appearance CLEAR; Urine Bilirubin NEGATIVE (NEG); Urine Blood NEGATIVE (NEG); Urine Color YELLOW; Urine Glucose NEGATIVE (NEG); Urine Protein NEGATIVE (NEG); Urine Specific Gravity 1.015 (1.005-1.030); Urine pH 6.5 (5.0-7.0)
[2018-05-14 08:26] LABS: Urine Microscopic Reflex NO UMIC
[2018-05-14] MEDS ORDERED: ASPIRIN 81 MG CHEWABLE TABLET PO SCH (09:00)
[2018-05-14] MEDS ORDERED: SERTRALINE HCL 100 MG TAB PO SCH (09:00)
[2018-05-14 17:05] VITALS: BP 118/61; TEMP 97.9
--- NOTE | 2018-05-14 17:27 | ECHO ---
HEIGHT: 6 ft 0 in WEIGHT: 240 lb 0 oz DATE OF STUDY: 05/14/[address]: Elder Crowley MD 2-DIMENSIONAL: YES M.MODE: YES DOPPLER: YES COLOR FLOW: YES TDS: PORTABLE: DEFINITY: BUBBLE STUDY: DIAGNOSIS: MURMUR CARDIAC HISTORY: CATHERIZATION: NO SURGERY: NO PROSTHETIC VALVE: NO PACEMAKER: NO MEASUREMENTS (cm) DIASTOLIC (NORMALS) SYSTOLIC (NORMALS) IVSd 1.2 (0.6-1.2) LA Diam 4.1 (1.9-4.0) LVEF 69% LVIDd 4.4 (3.5-5.7) LVIDs 2.7 (2.0-3.5) %FS 39% LVPWd 1.3 (0.6-1.2) Ao Diam 3.1 (2.0-3.7) 2 DIMENSIONAL ASSESSMENT: RIGHT ATRIUM: NORMAL LEFT ATRIUM: DILATED RIGHT VENTRICLE: NORMAL LEFT VENTRICLE: LEFT VENTRICULAR HYPERTROPHY TRICUSPID VALVE: NORMAL MITRAL VALVE: NORMAL PULMONIC VALVE: NORMAL AORTIC VALVE: SCLEROSIS PERICARDIAL EFFUSION: NONE AORTIC ROOT: NORMAL LEFT VENTRICULAR WALL MOTION: NORMAL DOPPLER/COLOR FLOW: MILD AORTIC REGURGITATION. COMMENTS: NORMAL LEFT VENTRICULAR EJECTION FRACTION. LEFT VENTRICULAR HYPERTROPHY. AORTIC SCLEROSIS WITH NO AORTIC STENOSIS. MILD AORTIC REGURGITATION. TECHNOLOGIST: COLLIN COOPER
[2018-05-14 17:58] VITALS: O2SAT 97
--- NOTE | 2018-05-15 04:14 | DS ---
Date of Discharge: 05/14/2018 Discharge Diagnoses: 1. Generalized weakness. 2. Dizziness. 3. Hypertension. 4. Hyperlipidemia. 5. Degenerative disk disease. 6. Posttraumatic stress disorder. 7. Heart murmur. Hospital Course: The patient is a 62-year-old male with past medical history of hypertension, PTSD, depression, and hyperlipidemia, who was recently started on losartan, comes in with dizziness and near-syncopal episode. The patient also takes alpha-samara for his prostate and is on methocarbamol. The patient was given IV fluids as he was somewhat on the dry side. Orthostatic vital signs were positive. The patient was evaluated with head CT scan, which was negative for any acute intracranial bleed or stroke. Chest x-ray was clear. UA was also negative. The patient did work well with physical therapist. He did have some orthostatic hypotension with going from sitting to standing position. His losartan was discontinued, and his prostate medication was also held. The patient's blood pressure did improve, was initially in the 100s over 50s upon arrival, now in the 120s over 60s. The patient was no longer having any near syncopal or dizzy spells. He was evaluated with an echocardiogram for new-onset murmur. Echo showed aortic sclerosis. No intervention recommended by cardiology. The patient was then cleared for discharge. He was sent home in a stable condition. Activity: Fall precautions. Diet: Heart healthy. Medications: As per medication reconciliation list. Followup: Follow up with PCP in 2 to 3 days. Return to ER for worsening condition. Physical Examination: General: Awake, alert, oriented x3. No acute distress. Appears older than stated age. CV: S1, S2. No murmurs. Peripheral pulses present. Respiratory: Moving air well bilaterally. Gastrointestinal: Abdomen is soft, nontender, nondistended. Positive bowel sounds. Extremities: No clubbing, cyanosis, or edema. Neurologic: Nonfocal. SA/MODL Voice ID: [id number] Report ID: [id number] NINA
== END 2018-05-14 18:00 | disposition home or self-care (01) ==
LOC: ER 10:59 → ERHOLD 14:06 → 4TH 17:03
PROVIDERS: ADMIT Family Medicine; ATTEND Family Medicine
DX: R53.1 Weakness (principal); R42 Dizziness and giddiness; I10 Essential (primary) hypertension; E78.5 Hyperlipidemia, unspecified; F32.9 Major depressive disorder, single episode, unspecified; F43.10 Post-traumatic stress disorder, unspecified; I95.9 Hypotension, unspecified; R01.1 Cardiac murmur, unspecified; F17.210 Nicotine dependence, cigarettes, uncomplicated
CPT/HCPCS: 36415; 70450; 71045; 80048; 80053; 80076; 81003; 83735; 83880; 84484; 85025; 85610; 93005; 93306; 94760; 97162; 99285; G0378; J1650